=== PATIENT | female | born 1995 | race Hispanic/Latino ===

== ENCOUNTER 2019-06-13 13:53 | Emergency (ER) | payer MEDICAID ==
--- NOTE | 2019-06-13 14:19 | RAD ---
EXAM: 3 views of the right ankle HISTORY: Ankle pain COMPARISON: None FINDINGS: 3 views of the right ankle shows a questionable fracture of the medial malleolus without ov erlying soft tissue swelling. Moderate lateral soft tissue swelling is seen. No degenerative changes are present. IMPRESSION: Questionable medial malleolus fracture. Correlate with medial point tenderness.
[2019-06-13] MEDS ORDERED: Ketorolac Tromethamine 30 MG/ML VIAL ONE (14:52)
--- NOTE | 2019-06-13 15:06 | RAD ---
3 VIEW LEFT ANKLE: Date: 06/13/19 INDICATION: Comparison Radiograph FINDINGS: The left ankle reveals no acute osseous abnormality. Mortise is intact. No fracture. Soft tissues are normal. IMPRESSION: No acute osseous abnormality of left ankle. POS: C
[2019-06-13] MEDS ORDERED: traMADol HCl 50 MG TAB ONE (16:01)
== END 2019-06-13 15:42 | disposition home or self-care (01) ==
LOC: ERS 13:53
DX: S82.51XA Displaced fracture of medial malleolus of right tibia, initial encounter for closed fracture (principal); I10 Essential (primary) hypertension; J45.909 Unspecified asthma, uncomplicated; Z79.899 Other long term (current) drug therapy; W18.30XA Fall on same level, unspecified, initial encounter
CPT/HCPCS: 29515; 96372; J1885

== ENCOUNTER 2019-07-30 09:07 | Outpatient (CLI) | payer OTHER ==
--- NOTE | 2019-07-30 11:26 | ULT ---
Renal Doppler ultrasound: 07/30/2019 COMPARISON: None HISTORY: 23-year-old female with high blood pressure, assess for renal artery stenosis TECHNIQUE: Multiplanar grayscale sonographic imaging of the kidneys obtained. The renal vasculature i s assessed with color flow and spectral analysis FINDINGS: The right kidney measures 10.2 x 3.8 x 4.9 cm and of the left kidney measures 11.6 x 4.8 x 4.8 cm. Imaged IVC and aorta appear unremarkable. No renal mass, hydronephrosis, or renal stone noted on either side. The resistive index of the arcuate arteries is 0.54-0.64 on the right and 0.43-0.50 on the left. Peak systolic velocity of the abdominal aorta is 92 cm/s. The greatest renal artery peak systolic velocity(centimeters per second) is 150 on the right and 71 o n the left. The renal artery/aortic ratio is 1.6 on the right and 0.8 on the left. No hemodynamically significant stenosis of either renal artery is noted on the basis of sonographic [place] criteria. IMPRESSION: No hemodynamically significant stenosis involving the renal artery on either side on the basis of sonographic velocity criteria.
== END 2019-07-30 09:08 | disposition home or self-care (01) ==
LOC: SCSULT 09:07 → ULT 09:08
PROVIDERS: ATTEND Family Medicine
DX: I10 Essential (primary) hypertension (principal)
CPT/HCPCS: 76700